=== PATIENT | female | born 1980 | race Caucasian/White ===

== ENCOUNTER 2022-06-12 20:54 | Emergency (ER) | payer BC, SELFPAY ==
--- NOTE | ~2022-06-12 | XR_ITS ---
IMPRESSION: No acute cardiopulmonary process. 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 RESULT: Lines, tubes, and devices: None. Lungs and pleura: Clear. Cardiomediastinal silhouette: Unremarkable. Other: No acute osseous or upper abdominal finding. IMPRESSION: No acute cardiopulmonary process. Reviewed, dictated and finalized at location [facility]. [place] PHARMACY TECHNICIAN
--- NOTE | 2022-06-12 21:03 | ED.FEVER ---
HPI - Fever General Chief Complaint: Unspecified Stated Complaint: cold chills, headache, back and hip pain, fever Time Seen by Provider: 06/12/22 20:59 Source: patient Mode of arrival: ambulatory Limitations: no limitations History of Present Illness HPI Narrative: 42-year-old female with a past medical history of asthma, kidney infections, presents to the ER with a 10 hour history of -- fever with a T-max of 101.9? -- headache. -- Body ache, back pain she denies any upper respiratory symptoms . No chest pain or shortness of breath no nausea/vomiting /abdominal pain / diarrhea. No dysuria or hematuria MD elicited complaint: fever Onset (ago): hour(s) ( symptoms started 10 hours ago.) Exacerbating factors: nothing Relieving factors: nothing Associated symptoms: chills, myalgias and headache Treatments prior to arrival fever: none Related Data Home Medications Medication Instructions Recorded Confirmed No Home Medications 06/12/22 06/12/22 Allergies Allergy/AdvReac Type Severity Reaction Status Date / Time Sulfa (Sulfonamide Allergy Unknown Verified 06/12/22 21:17 Antibiotics) Review of Systems Review of Systems: All systems reviewed & are unremarkable except as noted in HPI and below Constitutional: Constitutional: Reports as per HPI and Reports no additional constitutional complaints Eyes: Eyes: Reports as per HPI and Reports no additional eye complaints ENT: Reports system reviewed and no additional complaints, except as documented and Reports as per HPI Cardiovascular: Cardiovascular: Reports as per HPI and Reports no additional cardiovascular complaints Respiratory: Respiratory: Reports as per HPI and Reports no additional respiratory complaints Gastrointestinal: Gastrointestinal: Reports as per HPI and Reports no additional gastrointestinal complaints Genitourinary: Genitourinary: Reports no additional female genitourinary complaints and Reports as per HPI Musculoskeletal: Musculoskeletal: Reports no additional musculoskeletal complaints, Reports as per HPI, Reports back pain and Reports myalgias Integumentary/Breasts: Skin/Breast: Reports system reviewed and no additional complaints, except as docu and Reports as per HPI Neurologic: Reports system reviewed and no additional complaints, except as documented and Reports as per HPI Psychiatric: Psychiatric: Reports no additional psychiatric complaints and Reports as per HPI Endocrine: Endocrine: Reports no additional endocrine complaints and Reports as per HPI Hematologic/Lymphatic: Hematologic/Lymphatic: Reports no additional hematologic/lymphatic complaints and Reports as per HPI Allergic/Immunologic: Allergic/Immunologic: Reports no additional allergic/immunologic complaints and Reports as per HPI [facility] Past Medical History Medical History Asthma Kidney infection Exam Const: General: diaphoretic Nutritional Appearance: obese Orientation/consciousness: patient oriented x3 Limitations: no limitations HENMT: Head: normal to inspection Ears: external ears normal Face/Nose/Sinus: Normal external nose present Face and sinus: normal facial exam Mouth: Yes Normal oral and palatal mucosa present Throat: posterior oropharynx normal Eyes: Conjunctivae: conjunctivae normal Pupils: Equal, round and reactive pupils present EOM: EOMs intact bilaterally Direct Ophthalmoscopy: no photophobia Neck: Neck: normal visual inspection Chest: Chest palpation & inspection: normal inspection of the chest Resp: Effort & Inspection: normal respiratory effort Auscultation: clear to auscultation bilaterally Cardio: Rate: regular rate Rhythm: regular rhythm GI: GI Palp: Yes Soft to palpation Auscultation: normal bowel sounds Rectal Exam: normal sphincter tone Other: no tenderness/ rigidity / rebound. : General: Yes no CVA tenderness Back/Spine/Pelvis: Back: no CVA tenderness
[2022-06-12 21:05] VITALS: RESP 20
[2022-06-12 21:12] VITALS: BP 124/77; PULSE 107; TEMP 36.2; O2SAT 91
[2022-06-12 21:33] LABS: Basophils Absolute Auto 0.04 K/mm3 (0.00-0.10); Basophils Percent Auto 0.5 % (0.0-1.0); Eosinophils Absolute Auto 0.03 K/mm3 (0.02-0.50); Eosinophils Percent Auto 0.4 % (1.0-6.0); Hematocrit 39.7 % (35.0-49.0); Hemoglobin 13.5 g/dL (12.0-15.0); Immature Granulocyte Absolute 0.03 K/mm3 (0.00-0.00); Immature Granulocyte Percent A 0.4 % (0.0-0.0); Lymphocytes Absolute Auto 0.28 K/mm3 (1.10-4.50); Lymphocytes Percent Auto 3.6 % (18.0-42.0); Mean Corpuscular Hemoglobin 27.7 pg (27.0-31.0); Mean Corpuscular Volume 81.4 fL (78.0-102.0); Mean Platelet Volume 11.5 fl (9.2-11.8); Monocytes Absolute Auto 0.78 K/mm3 (0.10-0.90); Monocytes Percent Auto 10.1 % (2.0-11.0); Neutrophils Absolute Auto 6.6 K/mm3 (1.7-7.2); Platelet Count Result 198 K/mm3 (150-420); Red Blood Count 4.88 M/mm3 (4.20-5.40); White Blood Count 7.8 K/mm3 (4.8-10.8)
[2022-06-12 21:45] LABS: Add Urine Microscopic? NO; Appearance Urine Clear (Clear); Bilirubin Urine Negative (Negative); Blood Urine Negative (Negative); Color Urine Light Yellow (Yellow); Glucose Urine UA Negative (Negative); Ketones Urine Negative (Negative); Leukocyte Esterase Ur Negative LEU/UL (Negative); Nitrate Urine Negative (Negative); Protein Urine Negative (Negative); Specific Grav Ur <= 1.005 (1.010-1.020); Urobilinogen Urine 0.2 mg/dL (0.2-1.0)
[2022-06-12 21:46] LABS: Prothrombin Time 11.2 Seconds (9.50-12.10)
[2022-06-12 21:47] LABS: Pregnancy On Board Control Positive; Urine Pregnancy Test Negative
[2022-06-12 21:49] LABS: Alanine Aminotransferase 26 U/L (14-59); Albumin Level 3.5 g/dL (3.4-5.0); Alkaline Phosphatase 126 U/L (46-116); Anion Gap 11 mmol/L (8-16); Aspartate Amino Transferase 10 U/L (15-37); Bilirubin,Total 0.3 mg/dL (0.00-1.00); Blood Urea Nitrogen 8 mg/dL (7-18); Calcium 8.4 mg/dL (8.5-10.1); Carbon Dioxide 23 mmol/L (21-32); Chloride 106 mmol/L (98-108); Estimated CRCL calculation 69 ml/min; Estimated Glomerular Filt Rate > 60; Glucose 116 mg/dL (70-99); Osmolality Calculated 289 mOsm/kg (285-295); Potassium 3.2 mmol/L (3.5-5.1); Sodium 140 mmol/L (136-145); Total Protein 7.1 g/dL (6.4-8.2)
[2022-06-12] MEDS: KETOROLAC 30 MG/ML VIAL (*BKC) IM (21:51)
[2022-06-12 21:54] LABS: Lactic Acid Reflex 1.8 mmol/L (0.4-2.0)
[2022-06-12 22:11] LABS: Influenza A QL RT-PCR Negative (Negative); Influenza B QL RT-PCR Negative (Negative); SARS-CoV-2 RNA PCR Positive (Negative)
[2022-06-12 22:12] LABS: RSV RNA, RT-PCR Negative (Negative)
[2022-06-12 22:56] VITALS: BP 127/78; PULSE 91; RESP 20; TEMP 36.6; O2SAT 96
--- NOTE | 2022-06-19 16:55 | PC.NURSE ---
final blood culture reports x2 reviewed. no growth after 5 days. no change in plan of care
== END 2022-06-12 23:03 | disposition home or self-care (01) ==
PROVIDERS: Emergency Provider Internal Medicine Critical Care Medicine
DX: U07.1 COVID-19 (principal); J45.909 Unspecified asthma, uncomplicated
CPT/HCPCS: 36415; 71045; 80053; 81003; 81025; 83605; 85025; 85610; 87040; 87637; 96372; 99283; J1885

== ENCOUNTER 2022-07-19 10:11 | Outpatient (CLI) | payer BC, SELFPAY ==
[2022-07-19 10:28] LABS: Hematocrit 43.3 % (35.0-49.0); Hemoglobin 14.6 g/dL (12.0-15.0); Mean Corpuscular HGB Conc 33.7 g/dL (32.0-36.0); Mean Corpuscular Hemoglobin 27.9 pg (27.0-31.0); Mean Corpuscular Volume 82.8 fL (78.0-102.0); Platelet Count Result 282 K/mm3 (150-420); Red Blood Count 5.23 M/mm3 (4.20-5.40); Red Cell Distribution Width 13.3 % (11.6-14.4); White Blood Count 8.5 K/mm3 (4.8-10.8)
[2022-07-19 11:09] LABS: Alanine Aminotransferase 28 U/L (14-59); Albumin Level 3.5 g/dL (3.4-5.0); Alkaline Phosphatase 148 U/L (46-116); Anion Gap 9 mmol/L (8-16); Aspartate Amino Transferase 17 U/L (15-37); Bilirubin,Total 0.3 mg/dL (0.00-1.00); Blood Urea Nitrogen 9 mg/dL (7-18); Calcium 8.9 mg/dL (8.5-10.1); Carbon Dioxide 27 mmol/L (21-32); Chloride 106 mmol/L (98-108); Cholesterol 232 mg/dL (0-200); Estimated Glomerular Filt Rate 53; Glucose 89 mg/dL (70-99); HDL Direct 40 mg/dL (40-60); LDL Cholesterol Calculated 140 mg/dL (<130); Osmolality Calculated 291 mOsm/kg (285-295); Potassium 4.2 mmol/L (3.5-5.1); Sodium 142 mmol/L (136-145); Total Protein 7.2 g/dL (6.4-8.2); Triglycerides 262 mg/dL (0-150)
== END 2022-07-19 10:12 | disposition home or self-care (01) ==
LOC: CHSLAB 10:14
PROVIDERS: PCP Family Medicine; Visit Provider Family Medicine
DX: Z00.00 Encounter for general adult medical examination without abnormal findings (principal)
CPT/HCPCS: 36415; 80053; 80061; 85027

== ENCOUNTER 2022-07-24 13:09 | Outpatient (CLI) | payer BC, SELFPAY ==
--- NOTE | ~2022-07-24 | MM_ITS ---
EXAMINATION: MM screening [facility] w francisco javier HISTORY: Screening mammogram TECHNIQUE: Craniocaudal and mediolateral oblique 3-D tomosynthesis images were obtained and synthetic 2-D images were generated. CAD analysis was submitted and interpreted. COMPARISON: No prior mammogram is available for comparison at this institution. BREAST PARENCHYMAL COMPOSITION: There are scattered areas of fibroglandular density. FINDINGS: There is no evidence of suspicious mass, calcification, or architectural distortion to sugg est malignancy in either breast. There has been no suspicious interval change. IMPRESSION: 1. No mammographic evidence of malignancy. 2. Recommend routine screening mammography in one year. BI-RADS Category 1: Negative Reviewed, dictated and finalized at location A.
== END 2022-07-24 13:10 | disposition home or self-care (01) ==
LOC: CHSIMG 13:10
PROVIDERS: PCP Family Medicine; Visit Provider Family Medicine
DX: Z12.31 Encounter for screening mammogram for malignant neoplasm of breast (principal)
CPT/HCPCS: 77063; 77067

== ENCOUNTER 2023-08-14 16:35 | Outpatient (NON) | payer BC, SELFPAY ==
[2023-08-14 16:45] LABS: Appearance Urine Sl Cloudy (Clear); Bilirubin Urine Negative (Negative); Blood Urine Negative (Negative); Color Urine Yellow (Yellow); Glucose Urine UA Negative (Negative); Ketones Urine Negative (Negative); Leukocyte Esterase Ur 1+ LEU/UL (Negative); Nitrate Urine Negative (Negative); Protein Urine Negative (Negative)
[2023-08-14 16:48] LABS: Add Urine Microscopic? YES; Bacteria Urine 1+ /hpf; RBC Urine None seen /hpf (0-2); Squamous Epithelial Cell Urine Few /hpf (Few); WBC Urine 16-20 /hpf (0-3)
== END 2023-08-14 16:36 | disposition home or self-care (01) ==
PROVIDERS: PCP Family Medicine; Visit Provider Nurse Practitioner Family
DX: N39.0 Urinary tract infection, site not specified (principal)
CPT/HCPCS: 81001; 87077; 87086; 87088

== ENCOUNTER 2024-05-02 09:55 | Emergency (ER) | payer BC, SELFPAY ==
[2024-05-02 09:56] VITALS: BP 160/103; PULSE 97; RESP 20; TEMP 36.8; O2SAT 98
[2024-05-02 10:24] VITALS: O2SAT 98
--- NOTE | 2024-05-02 10:24 | ED.URI ---
HPI - URI/Sore Throat General Chief Complaint: Upper Respiratory Infection Stated Complaint: head congestion Time Seen by Provider: 05/02/24 10:02 Source: patient Mode of arrival: ambulatory Limitations: no limitations History of Present Illness HPI Narrative: 43-year-old female with no significant past medical history presents to the ED with a 1 day history of -- head congestion/ nasal congestion -- Ear fullness. no discharge. No ear pain -- fever with chills. No headache. no cough, sputum production or shortness of breath no nausea/vomiting /abdominal pain / diarrhea. No dysuria or hematuria MD elicited complaint: fever and nasal congestion Onset (ago): day(s) ( 1 day) Consistency: constant Associated symptoms: denies other symptoms, chills and nasal congestion Related Data Home Medications ?Medication ?Instructions ?Recorded ?Confirmed ?Last Taken ?Type famotidine 20 mg tablet 20 mg PO DAILY 07/19/22 08/14/23 Unknown History Allergies Allergy/AdvReac Type Severity Reaction Status Date / Time Sulfa (Sulfonamide Allergy Unknown Verified 05/02/24 10:26 Antibiotics) sulfamethoxazole (From Allergy Unknown Verified 05/02/24 10:26 Bactrim) trimethoprim (From Bactrim) Allergy Unknown Verified 05/02/24 10:26 Review of Systems Review of Systems: All systems reviewed & are unremarkable except as noted in HPI and below PMFSH Past Medical History Medical History Kidney infection Asthma Surgical History Surgical History History of cholecystectomy Social History Social History Smoking status: Former smoker Additional smoking assessment comments: Quit August 2015. 25 pk yr history Exam Narrative: blood pressure is 160/103. Oxygen saturation of 98% on room air. Const: General: healthy appearing Nutritional Appearance: well nourished Orientation/consciousness: patient oriented x3 Limitations: no limitations HENMT: Head: normal to inspection Ears: external ears normal Face/Nose/Sinus: Normal external nose present Face and sinus: normal facial exam Mouth: Yes Normal oral and palatal mucosa present Throat: posterior oropharynx normal Eyes: Conjunctivae: conjunctivae normal Pupils: Equal, round and reactive pupils present EOM: EOMs intact bilaterally Direct Ophthalmoscopy: no photophobia Neck: Neck: normal visual inspection, no lymphadenopathy and no meningeal signs Chest: Chest palpation & inspection: normal inspection of the chest Resp: Effort & Inspection: normal respiratory effort Auscultation: clear to auscultation bilaterally Cardio: Rate: regular rate Rhythm: regular rhythm GI: GI Palp: Yes Soft to palpation Other: No tenderness/rigidity / rebound. : General: Yes no CVA tenderness Back/Spine/Pelvis: Back: no CVA tenderness Skin: General skin exam: normal color Rashes: no rashes Wounds: no wounds Neuro: General: patient oriented x3, moves all extremities, no meningeal signs, no focal motor deficits and CN's II-XI intact bilaterally Cranial nerves: Yes Nystagmus not present Speech: normal speech Gait exam (Neuro): Normal gait present Extrem: General: normal to inspection and no clubbing, cyanosis or edema Psych: Mental Status: mental status grossly normal Affect: normal affect Attitude: cooperative Course Course Emergency Course: Upper respiratory tract infection- will test for influenza/ RSV /COVID-- patient tested positive for COVID hypertension-- advised her to follow-up with a primary care physician for evaluation and treatment of hypertension. Vital Signs Vital signs: Vital Signs Temperature 36.8 C 05/02/24 09:56 Pulse Rate 97 05/02/24 09:56 Respiratory Rate 20 05/02/24 09:56 Blood Pressure 160/103 H 05/02/24 09:56 Pulse Oximetry 98 05/02/24 09:56 Oxygen Delivery Room Air 05/02/24 09:56 Temperature 36.8 C 05/02/24 09:56 Pulse Rate 97 05/02/24 09:56 Respiratory Rate 20 05/02/24 09:56 Blood Pressure 160/103 H 05/02/24 09:56 Pulse Oximetry 98 05/02/24 10:24 Oxygen Delivery Room Air 05/02/24 10:24 MDM - URI/Sore Throat MDM Narrative Medical decision making narrative: COVID upper respiratory tract infection Differential Diagnosis Differential diagnosis: Likely upper respiratory infection Lab Data Attestation: I reviewed the patient's lab results. Labs: Lab Results 05/02/24 Range/Units 10:10 Influenza A (RT-PCR) Negative (Negative) Influenza B (RT-PCR) Negative (Negative) RSV (RT-PCR) Negative (Negative) SARS-CoV-2 RNA (RT-PCR) Positive A (Negative) Discharge Plan Discharge Clinical Impression: COVID-19 Upper respiratory infection Qualifiers: URI type: unspecified URI Qualified Code(s): J06.9 - Acute upper respiratory infection, unspecified Hypertension Qualifiers: Hypertension type: unspecified Qualified Code(s): I10 - Essential (primary) hypertension Patient Disposition: Home, Self-Care Condition: Stable Instructions: Antibiotic Form, Hypertension (ED), COVID-19 (Coronavirus Disease 2019) (ED) Patient Language: Cypriot Prescriptions: No Action famotidine 20 mg tablet 20 mg PO DAILY Follow-up/Referrals: Eddi Bettencourt DO [Primary Care Provider] - Time of Disposition: 11:04
[2024-05-02 10:50] LABS: SARS-CoV-2 RNA PCR Positive (Negative)
[2024-05-02 10:51] LABS: Influenza A QL RT-PCR Negative (Negative); Influenza B QL RT-PCR Negative (Negative); RSV RNA, RT-PCR Negative (Negative)
[2024-05-02 11:12] VITALS: BP 166/108; PULSE 90; RESP 20; TEMP 36.6; O2SAT 98
--- NOTE | 2024-05-02 11:14 | PC.NURSE ---
b/p elevated dr davila pt is to follow up with dr villarreal
== END 2024-05-02 11:15 | disposition home or self-care (01) ==
PROVIDERS: Emergency Provider Internal Medicine Critical Care Medicine; PCP Family Medicine
DX: U07.1 COVID-19 (principal); I10 Essential (primary) hypertension; Z87.891 Personal history of nicotine dependence
CPT/HCPCS: 87637; 99283; A9270

== ENCOUNTER 2024-05-13 10:48 | Outpatient (CLI) | payer BC, SELFPAY ==
[2024-05-13 11:00] LABS: Basophils Absolute Auto 0.05 K/mm3 (0.00-0.10); Basophils Percent Auto 0.6 % (0.0-1.0); Eosinophils Absolute Auto 0.13 K/mm3 (0.02-0.50); Eosinophils Percent Auto 1.6 % (1.0-6.0); Hematocrit 41.6 % (35.0-49.0); Immature Granulocyte Absolute 0.02 K/mm3 (0.00-0.00); Immature Granulocyte Percent A 0.3 % (0.0-0.0); Lymphocytes Absolute Auto 3.09 K/mm3 (1.10-4.50); Mean Corpuscular HGB Conc 33.7 g/dL (32-36); Mean Corpuscular Hemoglobin 26.4 pg (27.0-31.0); Mean Corpuscular Volume 78.5 fL (78.0-102.0); Mean Platelet Volume 10.9 fl (9.2-11.8); Monocytes Absolute Auto 0.79 K/mm3 (0.10-0.90); Neutrophils Absolute Auto 3.85 K/mm3 (1.70-7.20); Neutrophils Percent Auto 48.5 % (50.0-70.0); Platelet Count Result 299 K/mm3 (150-420); Red Cell Distribution Width 12.8 % (11.6-14.4); White Blood Count 7.9 K/mm3 (4.8-10.8)
[2024-05-13 11:52] LABS: Alanine Aminotransferase 30 U/L (14-59); Albumin Level 3.7 g/dL (3.4-5.0); Alkaline Phosphatase 132 U/L (46-116); Anion Gap 10 mmol/L (4-12); Aspartate Amino Transferase < 10 U/L (15-37); Bilirubin,Total 0.3 mg/dL (0.00-1.00); Blood Urea Nitrogen 6 mg/dL (7-18); Carbon Dioxide 26 mmol/L (21-32); Chloride 106 mmol/L (98-108); Cholesterol 200 mg/dL (0-200); Estimated Glomerular Filt Rate > 60; Glucose 83 mg/dL (70-99); HDL Direct 46 mg/dL (40-60); LDL Cholesterol Calculated 123 mg/dL (<130); Osmolality Calculated 290 mOsm/kg (285-295); Potassium 3.9 mmol/L (3.5-5.1); Sodium 142 mmol/L (136-145); Total Protein 6.9 g/dL (6.4-8.2); Triglycerides 157 mg/dL (0-150)
[2024-05-13 11:57] LABS: Thyroid Stimulating Hormone Reflex 1.09 u/IU/mL (0.36-3.74)
== END 2024-05-13 10:49 | disposition home or self-care (01) ==
LOC: CHSLAB 10:50
PROVIDERS: PCP Family Medicine; Visit Provider Family Medicine
DX: E03.9 Hypothyroidism, unspecified (principal); E66.3 Overweight
CPT/HCPCS: 36415; 80053; 80061; 84443; 85025

== ENCOUNTER 2024-10-07 14:46 | Outpatient (CLI) | payer BC, SELFPAY ==
--- NOTE | ~2024-10-07 | MM_ITS ---
EXAMINATION: MM screening angelica BI w francisco javier HISTORY: Screening TECHNIQUE: Craniocaudal and mediolateral oblique 3-D tomosynthesis images were obtained and synthetic 2-D images were generated. CAD analysis was submitted and interpreted. COMPARISON: 07/24/2022 BREAST PARENCHYMAL COMPOSITION: Not dense: There are scattered areas of fibroglandular density. FINDINGS: There is no evidence of suspicious mass, calcification, or architectural distortion to sugg est malignancy in either breast. There has been no suspicious interval change. IMPRESSION: 1. No mammographic evidence of malignancy. 2. Recommend routine screening mammography in one year. BI-RADS Category 1: Negative Reviewed, dictated and finalized at location A.
--- OUTSIDE RECORDS SUMMARY | 2024-10-07 14:51 | XMS_ITS | Data Portability ---
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 Plan of Treatment Reminders Order Date Submit Date Provider Last Modified By Organization Details Last Modified Time Details Appointments None recorded. Lab cytology report, thin prep, smear or scraping, cervical or vaginal 2024 025 [facility], [address] [facility] [address], [place], [address], 5 17:20:59 CBC 2024 025 [facility], [address] [facility] [address], [place], [address], 5 10:33:51 CMP, serum or plasma 2024 025 N[facility], [address] [facility] [address], [place], [address], 5 10:33:50 lipid panel, serum 2024 025 [facility], [address] [facility], [facility], [place], [address], 5 10:33:49 HbA1c (hemoglobi n A1c), blood 2024 025 NIDA In-Office Order, Internal Use Only DO Not Attach Compendium DO Not Attach Compendium, Do Not Delete/merge, [id number] 12:26:26 test, urine 2014 015 NIDA In-Office Order, Internal Use Only DO Not Attach Compendium DO Not Attach Compendium, Do Not Delete/merge, [id number] 12:33:18 Referral None recorded. Procedures None recorded. Surgeries None recorded. Imaging MAMMO, screening, bilateral 2024 025 [email or web address] 0 [facility], [address] [place], [address], 17:04:13 Medication Orders None recorded. Patient TargetsNo targets recorded. Patient Instructions Encounter Date Encounter Id Patient Instructions Last Modified By Organization Details Last Modified Time 07/24/2014 [id number] continue same, return in 3 weeks for woman's health exam [email or web address] Not available 07/24/2014 12:33:18 07/04/2024 [id number] A healthy lifestyle: care instructions [facility] Not available 07/04/2024 10:14:13 learning about high blood pressure anney Not available 07/04/2024 10:14:13 09/26/2024 [id number] learning about high blood pressure jnanney Not available 09/26/2024 11:54:22 A healthy lifestyle: care [email or web address] Not available 09/26/2024 11:54:22 09/29/2024 [id number] A healthy lifestyle: care instructions [email or web address] Not available 09/29/2024 17:04:13 Your women's health annual exam today was unremarkable. Continue to practice breast self awareness like we discussed. Come back to the office with any breast changes, nipple discharge, change to your menstrual cycle, or with complaints of unusual odorous discharge. Otherwise, come back in 1 year for your next well woman annual exam. Do NOT douche as it disturbs the natural balance of bacteria in the vagina and can cause infection. Avoid scented soaps or lotions. Use a basic unscented soap for only the outer skin around your vagina. Wear cotton underwear, avoid thongs, avoid spandex, leggings and wear panty liners daily. You can try probiotics. Use a condom with EVERY sexual encounter to minimize your risk for sexually transmitted infection and unplanned . [email or web address] Not available 09/29/2024 16:18:10 Reason for Referral None Reported. Results Created Date Observation Date Name Description Value Unit Range Abnormal Flag Note LastModifiedBy Organization Detail LastModifiedTime 07/25/19 15 07/24/2014 pregn eleonora test, urine HCG negati ve Not Available In-Office Order Internal Use Only DO Not Attach Compendium DO Not Attach Compendium, Do Not Delete/merge, [id number] 07/24/2014 12:32:40 09/27/19 25 09/27/2024 LIPID PANEL cholesterol, total 206 mg/dL 100-19 9 above high normal Not Available [address], [address], 09/27/2024 10:33:49 09/27/19 25 09/27/2024 LIPID PANEL triglyceride s 145 mg/dL 0-149 Not Available [address], [address], 09/27/2024 10:33:49 09/27/19 25 09/27/2024 LIPID PANEL HDL cholesterol 47 mg/dL >39 Not Available [address], [address], 09/27/2024 10:33:49 09/27/19 25 09/27/2024 LIPID PANEL VLDL cholesterol jazmine 26 mg/dL 5-40 Not Available [address], [address], 09/27/2024 10:33:49 09/27/19 25 09/27/2024 LIPID PANEL LDL chol calc ([facility]) 133 mg/dL 0-99 above high normal Not Available [address], [address], 09/27/2024 10:33:49 09/27/19 25 09/27/2024 COMP. METAB OLIC PANEL (14) glucose 107 mg/dL 70-99 above high normal Not Available [facility] [address], [address], 09/27/2024 10:33:50 09/27/19 25 09/27/2024 COMP. METAB OLIC PANEL (14) BUN 8 mg/dL 6-24 Not Available [address], [address], 09/27/2024 10:33:50 09/27/19 25 09/27/2024 COMP. METAB OLIC PANEL (14) creatinine 0.76 mg/dL 0.57-1 .00 Not Available [address], [address], 09/27/2024 10:33:50 09/27/19 25 09/27/2024 COMP. METAB OLIC PANEL (14) eGFR 100 mL/mi n/1.7 3 >59 Not Available [address], [address], 09/27/2024 10:33:50 09/27/19 25 09/27/2024 COMP. METAB OLIC PANEL (14) BUN/creatini ne ratio 11 9-23 Not Available [address], [address], 09/27/2024 10:33:50 09/27/19 25 09/27/2024 COMP. METAB OLIC PANEL (14) sodium 139 mmol/ L 134-14 4 Not Available [address], [address], 09/27/2024 10:33:50 09/27/19 25 09/27/2024 COMP. METAB OLIC PANEL (14) potassium 3.6 mmol/ L 3.5-5. 2 Not Available [address], [address], 09/27/2024 10:33:50 09/27/19 25 09/27/2024 COMP. METAB OLIC PANEL (14) chloride 105 mmol/ L 96-106 Not Available [address], [address], 09/27/2024 10:33:50 09/27/19 25 09/27/2024 COMP. METAB OLIC PANEL (14) carbon dioxide, total 18 mmol/ L 20-29 below low normal Not Available [address], [address], 09/27/2024 10:33:50 09/27/19 25 09/27/2024 COMP. METAB OLIC PANEL (14) calcium 9.6 mg/dL 8.7-10 .2 Not Available [address], [address], 09/27/2024 10:33:50 09/27/19 25 09/27/2024 COMP. METAB OLIC PANEL (14) protein, total 7.0 g/dL 6.0-8. 5 Not Available [address], [address], 09/27/2024 10:33:50 09/27/19 25 09/27/2024 COMP. METAB OLIC PANEL (14) albumin 4.3 g/dL 3.9-4. 9 Not Available [address], [address], 09/27/2024 10:33:50 09/27/19 25 09/27/2024 COMP. METAB OLIC PANEL (14) globulin, total 2.7 g/dL 1.5-4. 5 Not Available [address], [address], 09/27/2024 10:33:50 09/27/19 25 09/27/2024 COMP. METAB OLIC PANEL (14) bilirubin, total 0.3 mg/dL 0.0-1. 2 Not Available [address], [address], 09/27/2024 10:33:50 09/27/19 25 09/27/2024 COMP. METAB OLIC PANEL (14) alkaline phosphatase 142 IU/L 44-121 above high normal Not Available [address], [address], 09/27/2024 10:33:50 09/27/19 25 09/27/2024 COMP. METAB OLIC PANEL (14) AST (SGOT) 17 IU/L 0-40 Not Available [address], [address], 09/27/2024 10:33:50 09/27/19 25 09/27/2024 COMP. METAB OLIC PANEL (14) ALT (SGPT) 19 IU/L 0-32 Not Available [address], [address], 09/27/2024 10:33:50 09/27/19 25 09/27/2024 CARDI OVASC ULAR REPOR T interpretati on Note Suppl emjuan al repor t is avail able. Not Available [address], [address], 09/27/2024 10:33:51 09/27/19 25 09/27/2024 CARDI OVASC ULAR REPOR T pdf . Not Available [address], [address], 09/27/2024 10:33:51 09/27/19 25 09/27/2024 CBC, PLATE LET, NO DIFFE RENTI AL WBC 7.3 x10e3 /uL 3.4-10 .8 Not Available [address], [address], 09/27/2024 10:33:51 09/27/19 25 09/27/2024 CBC, PLATE LET, NO DIFFE RENTI AL RBC 5.43 x10e6 /uL 3.77-5 .28 above high normal Not Available [address], [address], 09/27/2024 10:33:51 09/27/19 25 09/27/2024 CBC, PLATE LET, NO DIFFE RENTI AL hemoglobin 14.8 g/dL 11.1-1 5.9 Not Available [address], [address], 09/27/2024 10:33:51 09/27/1909/27/2024 CBC, PLATE LET, NO DIFFE RENTI AL hematocrit 46.3 % 34.0-4 6.6 Not Available [address], [address], 09/27/2024 10:33:51 09/27/19 25 09/27/2024 CBC, PLATE LET, NO DIFFE RENTI AL MCV 85 fL 79-97 Not Available [address], [address], 09/27/2024 10:33:51 09/27/1909/27/2024 CBC, PLATE LET, NO DIFFE RENTI AL MCH 27.3 pg 26.6-3 3.0 Not Available [address], [address], 09/27/2024 10:33:51 09/27/1909/27/2024 CBC, PLATE LET, NO DIFFE RENTI AL MCHC 32.0 g/dL 31.5-3 5.7 Not Available [address], [address], 09/27/2024 10:33:51 09/27/19 25 09/27/2024 CBC, PLATE LET, NO DIFFE RENTI AL RDW 14.5 % 11.7-1 5.4 Not Available [facility] [address] [place] [address], [address], 09/27/2024 10:33:51 09/27/19 25 09/27/2024 CBC, PLATE LET, NO DIFFE RENTI AL platelets 290 x10e3 /uL 150-45 0 Not Available [address], [address], 09/27/2024 10:33:51 09/27/19 25 09/26/2024 HbA1c (hemo globi n A1c), blood HbA1c 5.5 Not Available In-Office Order Internal Use Only DO Not Attach Compendium DO Not Attach Compendium, Do Not Delete/merge, [id number] 09/26/2024 11:53:56 09/30/19 25 10/02/2024 IGP, APTIM A HPV, RFX 16/18 ,45 diagnosis: COMMEN T NEGAT WILLIAM FOR INTRA EPITH ELIAL VICENTE Pete OR MAGGI FERRARA . Not Available [facility] ([facility]) [address] [facility], [place], [address], 10/02/2024 17:20:59 09/30/19 25 10/02/2024 IGP, APTIM A HPV, RFX 16/18 ,45 specimen adequacy: COMMEN T Satis facto ry for evalu ation . Endoc ervic al and/o r squam ous metap lasti c cells (endo cervi jazmine compo nent) are prese nt. Not Available [facility] ([facility]) [address] [facility], [place], [address], 10/02/2024 17:20:59 09/30/19 25 10/02/2024 IGP, APTIM A HPV, RFX 16/18 ,45 clinician provided ICD10: COMMEN T Z01.4 19 Not Available [facility] ([facility]) [address] [place], [address], 10/02/2024 17:20:59 09/30/19 25 10/02/2024 IGP, APTIM A HPV, RFX 16/18 ,45 performed by: NORMA chin, Cytol ogist (ASCP ) Not Available [facility] ([facility]) [address] [place], [address], 10/02/2024 17:20:59 09/30/19 25 10/02/2024 IGP, APTIM A HPV, RFX 16/18 ,45 . . Not Available [facility] ([facility]) [address] [place], [address], 10/02/2024 17:20:59 09/30/19 25 10/02/2024 IGP, APTIM A HPV, RFX 16/18 ,45 note: NORMA Schreiber The Pap smear is a scree luis armando test desig roopa to aid in the detec tion of demetris ligna nt and malig nant condi tions of the uteri ne cervi x. It is not a diagn ostic proce dure and shoul d not be used as the sole means of detec ting cervi jazmine cance r. Both false -posi tive and false -nega tive repor ts do occur . Not Available [facility] ([facility]) [address] [place], [address], 10/02/2024 17:20:59 09/30/19 25 10/02/2024 IGP, APTIM A HPV, RFX 16/18 ,45 test methodology: NORMA Schreiber This liqui d based ThinP rep(R ) pap test was scree roopa with the use of an image guide lawanda cota Not Available [facility] ([facility]) [address] [place], [address], 10/02/2024 17:20:59 09/30/19 25 10/02/2024 IGP, APTIM A HPV, RFX 16/18 ,45 HPV aptima NEGATI VE negati ve This nucle ic acid ampli ficat ion test detec ts fourt een high- risk HPV types (16,1 8,31, 33,35 ,39,4 5,51, 52,56 ,58,5 9,66, 68) witho ut diffe renti ation . Not Available [facility] ([facility]) [address] [facility], [place], [address], 10/02/2024 17:20:59 09/30/19 25 10/02/2024 IGP, APTIM A HPV, RFX 16/18 ,45 HPV genotype reflex COMMEN T Crite cullen not met, HPV Genot ype not perfo rmed. Not Available [facility] ([facility]) [address] [facility], [place], [address], 10/02/2024 17:20:59 Result Notes None recorded. Problems Name Problem SNOMED Code Status Onset Date Resolution Date Notes Provider Name and Address Organization Details Recorded Time Missed period 80543785 Active Zaid LIANG Attn: Emelina augustine,[address] [facility], [place], [address], [facility] 5 12:33:18 Essential hypertension 09530851 Active 2024 YANE REYEZ NP Attn: Emelina augustine,[address] [place], [address], [facility] 16:28:35 Problem Notes None recorded. Procedures Surgical History Date Name Laterality Status Provider Name and Address Organization Details Recorded Time 09/30/19 Date of Last Pap Smear completed YANE REYEZ NP Attn: Accounting, [address] [place], [address], [facility] 09/29/2024 16:26:34 Cholecystectomy completed Chani Casey LPN [facility] 07/24/2014 11:42:40 Caesarean Section completed Chani Casey LPN [facility] 07/24/2014 11:42:40 Imaging Results None recorded. Procedure Notes None recorded. Medical Equipment None Reported. Allergies Allergen ID Allergen Name Allergen Category Reaction Reaction Severity Criticality Documentation Date Start Date Code Code System Note Provider Name and Address Organization Details Recorded Time 41664 Substance with sulfonami de structure and antibacte rial mechanism of action (substanc e) medicatio n Not available Not available Not available 07/24/2014 11893 8003 [facility]ED [facility] 11:42:40 [address] wasp venoms environme nt Not available Not available Not available 07/24/2014 56328 RxNorm CHACORTA Archibald, [facility] 5 11:42:41 Medications Name Sig Start Date Stop Date Status Note LastModified by Organization Details LastModified Time amlodipine 10 mg tablet TAKE 1 TABLET BY MOUTH ONCE DAILY active Not Available Not Available No t Available diazepam 5 mg tablet Take 1 tablet every day by oral route. 07/04 completed Not Available Not Available Not Available Vitals Date Recorded Body height Body mass index (BMI) Body weight Respiratory rate Oxygen saturation Oxygen saturation in Arterial blood by Pulse oximetry Heart rate Systolic And Diastolic Provider Name and Address Organization Details Last Updated DateTime 5 151.77 cm 35.2 kg/m2 82657.0 3 g 16 /min 98 % 98 % 78 /min 132/86 mm[Hg] Chani Knox MA [facility] [address] 5 09:57:23 Date Recorded Body height Body mass index (BMI) Body weight Respiratory rate Heart rate Body temperature Systolic And Diastolic Provider Name and Address Organization Details Last Updated DateTime 5 151.765 cm 30.1 kg/m2 11863.6 3261 g 18 /min 84 /min 98 [degF] 110/74 mm[Hg] Chani Casey LPN [facility] 5 11:46:49 Date Recorded Body height Body mass index (BMI) Body weight Oxygen saturation Oxygen saturation in Arterial blood by Pulse oximetry Heart rate Respiratory rate Systolic And Diastolic Provider Name and Address Organization Details Last Updated DateTime 5 151.77 cm 34.2 kg/m2 99452.3 5 g 98 % 98 % 80 /min 18 /min 116/78 mm[Hg] Chani Knox MA [facility] 11:34:34 Date Recorded Body height Body mass index (BMI) Body weight Heart rate Systolic And Diastolic Provider Name and Address Organization Details Last Updated DateTime 09/29/2024 151.77 cm 34.5 kg/m2 68709.66 g 88 /min 110/70 mm[Hg] Torie Roberts MA [facility] 09/29/2024 16:29:54 Social History Question Answer Notes LastModified by [employer] Details LastModified Time Tobacco Smoking Status Former Smoker Chani Knox MA null, [facility] 07/04/2024 09:54:58 What Is Your Level Of Caffeine Consumption? Heavy Information not available 07/04/2024 What Was The Date Of Your Most Recent Tobacco Screening? 09/29/2024 Information not available 09/29/2024 What Is Your Relationship Status? Information not available 09/29/2024 Has Tobacco Cessation Counseling Been Provided? No Information not available 09/29/2024 Sex: Female Functional Status Question Answer Note LastModified by [employer] Details LastModified Time Do you use any illicit or recreational drugs? No Information not available 07/04/2024 Do you or have you ever used any other forms of tobacco or nicotine? No Information not available 07/04/2024 What is your level of alcohol consumption? None Information not available 07/04/2024 Mental Status Question Answer Note LastModified by Organization D etails LastModified Time Do you feel stressed (tense, restless, nervous, or anxious, or unable to sleep at night)? [id number] Information not available 09/29/2024 Family History Relationship Description Onset Age of this Age Resolved Age Notes LastModified by Organization Details LastModified Time Mother Hypertensive disorder [email or web address] Not available 2024 16:26:56 Medical History Condition Response Asthma Y Gynecological History Statement/Question Response Abnormal Pap N Flow Heavy Date of LMP 09/25/2024 On BCP's at Conception? N STIs/STDs N HPV Vaccine N Duration of Flow (days) 4 Age at Menarche 15 Current Control Method Partner Vas ectomy Age at First Child 17 Sexually Active? Y Menses Monthly Y Date of Last Pap Smear 09/29/2024 Sexual Problems? N LMP Approximate Obstetrics History GPAL:G 0 P 0 0 0 0 Past Encounters Encounter ID Performer Location Encounter Start Date Encounter Closed Date Diagnosis/Indication Diagnosis SNOMED-CT Code Diagnosis ICD10 Code Diagnosis Note [id number] Zaid Lee [address] [place] [address] 07/24/2014 11:27:30 07/24/2014 13:45:33 Missed period 53667081 [id number] Johnny Mack MD [facility] [address] [place] [address] 07/04/2024 09:43:37 07/07/2024 11:13:47 Essential hypertension 04697930 I10 Overweight 565068921 E66 .3 [id number] Johnny Mack MD [facility] [address] [place] [address] 09/26/2024 11:14:26 09/30/2024 13:00:37 Essential hypertension 37317882 I10 well controlled Obese class I 2091989039 92506 E66.963 [id number] YANE REYEZ NP [facility] [address] [place] [address] 09/29/2024 16:16:44 09/30/2024 14:03:11 Gynecologic examination 17479067 Z01.419 Chief 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 Pap+ HPV cotesting done; pt has no pap history2. STI screening declined.3 . Pt is using vasectomy for control.4. Discussed breast self awareness5 . Mammogram ordered per ACOG guidelines 6. Educated on STI reduction and prevention . Encouraged condom use.7. Discussed when to return to clinic for /EQUITY HOLDER complaints . Screening mammography 24 676057 Z12.31 Last mammogram 2022Order placed Contracept william use education 91236944 Z30.09 Partner has a vasectomy Obese class I [id number] 55334 E66.811 Health Concerns Section Related Observation LastModified by Organization Detai ls LastModified Time None Recorded Concern Status LastModified by Organization Details LastModified Time None Recorded Advance Directives Directive None Recorded Payers Encounter Date Sequence Insurance Name Policy Number Policy Li Covered Member ID Li Member ID Guarantor Name 07/24/2014 1 [place] [employer] Laura Evens [id number] Laura Horner 07/04/2024 1 [place] [id number] Parminder Horner [id number] Laura Horner 09/26/2024 1 [place] [id number] Parminder Horner [id number] Laura Horner 09/29/2024 1 [place] [id number] Parminder Horner [id number] Laura Horner Notes Date Note Type Note Provider Name and Address Organization Details Recorded Time 07/24/2014 text/html is two weeks lat e on menstrual cycle had sex with someone other than her about November of last year, is sexually active with , who had a vasectomy 12 years ago Zaid RUBIOC Attn: Accounting,[address] [facility], [place], [address], [facility] 07/24/2014 12:33:30 07/04/2024 text/html new patient...di d see deangelo provider..lives here so is switching...htn issues...just had labs last month was told all was well.. 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 Reports regular menstrual cycles with 4-5 days of moderate flow using 8-10 pads/tampon on their heaviest day. Denies any /EQUITY HOLDER complaints. Denies any breast changes/pain, fatigue/cold intolerance/hair loss/dry skin. Denies dyspareunia, pelvic pressure or bowel movement changes.Denies SOB/chest pain/dizziness. Denies any fever or chills. Denies any family history of breast, ovarian, endometrial or pancreatic cancer. LMP: 09/22/2024Last pap smear: unknownPap due: TodayLast Mammogram: atient is currently sexually active with 1 male partner and has had 1 male partner in the past 23 years.Current contraception: Partner has a vasectomyPatient is happy with methodDeclines STI testing today. YANE REYEZ NP Attn: Accounting,[address] [place], [address], [facility] 09/29/2024 17:05:00 OBGyn Episode No OBEpisode recorded.
== END 2024-10-07 14:47 | disposition home or self-care (01) ==
PROVIDERS: PCP Physician Assistant; Visit Provider Nurse Practitioner Women's Health
DX: Z12.31 Encounter for screening mammogram for malignant neoplasm of breast (principal)
CPT/HCPCS: 77063; 77067